=== PATIENT | male | born 1935 | race Caucasian/White ===

== ENCOUNTER 2016-11-01 16:38 | Emergency (ER) | payer MEDICARE, OTHER ==
[2016-11-01] MEDS ORDERED: MAGNESIUM CITRATE SOLN 296 ML BTL ONE (17:09)
[2016-11-01 17:48] LABS: BLOOD UREA NITROGEN 22 mg/dL (9-20); CALCIUM 10.3 mg/dL (8.4-10.2); CHLORIDE 109 mmol/L (98-107); GLUCOSE 86 mg/dL (70-100); SODIUM 141 mmol/L (137-145)
--- NOTE | 2016-11-01 18:09 | ER PHYSICIAN DOCUMENTATION ---
Physician Documentation [facility] Name:Alberto Alexandra Age:81 yrs Sex:Male :1935 Arrival Date:11/01/2016 Time:16:38 Bed4 Private MD:Tiffanie Cordero ED, John Disposition: 11/01/16 18:03 Discharged to Home/Self Care. Impression: Constipation, Urinary Retention. - Condition is Good. - Discharge Instructions: CONSTIPATION (Adult). - Medical Reconciliation form form. - Follow up: Kirit Fournier MD; When: 1 - 2 days; Reason: Continuance of care. Follow up: Pelon Berry MD; When: As needed; Reason: Recheck today's complaints. - Problem is an ongoing problem. - Symptoms are unchanged. HPI: 11/01 17:43 This 81 yrs old Male presents to ER via Private Vehicle with complaints of jm Abdominal Problem - POSS BOWEL OBSTRUCTION. 17:43 The patient presents with constipation, the patient has not had a bowel movement for jm 5days. Onset: The symptoms/episode began/occurred 3 month(s) ago. The symptoms do not radiate. Associated signs and symptoms: Pertinent positives: urinary retention. . Severity of pain: At its worst the pain was very mild in the emergency department the pain has resolved. Pt's been dealing w constipation for months. He's been told he needs a colonoscopy, but has refused to get one for personal reasons. He' starting to change his mind, b/c now he thinks that his stool burden is affecting his ability to urinate. He told the practice office associate at 4:30 about this, so she sent him here for eval. Pt has no abd pain, no nausea, or vomiting. . Historical: - Allergies: No known drug Allergies; - Home Meds: 1. Prednisone Oral 2. donepezil oral 3. qunol 4. Metoprolol Tartrate Oral 5. prevagen 6. Benadryl Oral 7. atorvastatin oral 8. terazosin oral 9. finasteride oral 10. Aspirin Oral - PMHx: BPH; kidney disease; spinal stenosis; Hypertension; SLEEP APNEA; - PSHx: CABG; HERNIA REPAIR; cataracts; stents in legs and one kidney; - Tetanus: < 10 years. - Ebola Screening: : Patient denies exposure to infectious person. Patient denies travel to an Ebola-affected area in the 21 days before illness onset. . - Social history: Smoking status: Patient states former smoker of tobacco. Patient uses alcohol but reports only rare drinking. Patient/guardian denies using marijuana. ROS: 17:45 Abdomen/GI: Positive for constipation, Negative for abdominal pain, abdominal cramps. jm 17:45 : Positive for difficulty urinating. Exam: 17:45 Constitutional: The patient appears alert, awake. jm 17:45 Abdomen/GI: Inspection: distension, is not seen, Bowel sounds: normal, Palpation: abdomen is soft and non-tender. 17:45 : CVA tenderness, is absent, Bladder: is normal, tenderness, is not appreciated. Vital Signs: 17:05 BP 152 / 71; Pulse 81; Resp 16; Temp 98.2; Pulse Ox 94% on R/A; Pain 0/10; st MDM: 17:14 Patient medically screened. 17:45 Differential diagnosis: retention and constipation. Data reviewed: vital signs, nurses notes, old medical records, and as a result, I will discharge patient. Counseling: I had a detailed discussion with the patient and/or guardian regarding: the historical points, exam findings, and any diagnostic results supporting the discharge/admit diagnosis, the need for outpatient follow up, with the patient's primary care provider, a spot sprayer. 11/01 17:53 Order name: BASIC METABOLIC PANEL; Complete Time: 18:03 EDMS Dispensed Medications: 16:57 Drug: Magnesium Citrate Liquid 300 ml; Route: PO; st 18:03 Follow up: Response: No adverse reaction st Signatures: Josefa Hdz, RN RN Mian Lemus MD MD jm
--- NOTE | 2016-11-01 18:09 | ER NURSING DOCUMENTATION ---
Nurse's Notes [facility] Name:Alberto Alexandra Age:81 yrs Sex:Male :1935 Arrival Date:11/01/2016 Time:16:38 Bed4 Private MD:Tiffanie Cordero Diagnosis:Constipation;Urinary Retention Presentation: 11/01 16:48 Acuity: ZAHIDA 3 st 16:57 Presenting complaint: Patient states: pt states he has been constipated since Jun with st a BM every 2-3 days. This last week pt has also had troubles urinating as well. Transition of care: patient was not received from another setting of care. 16:57 Method Of Arrival: Private Vehicle st Triage Assessment: 17:03 General: Appears in no apparent distress, Behavior is cooperative. Pain: Denies pain. st GI: Abd is soft and non tender X 4 quads. Reports constipation, pt denies any discomfort at this time. : Reports having troubles urinating especially more then a dribble. Historical: - Allergies: No known drug Allergies; - Home Meds: 1. Prednisone Oral 2. donepezil oral 3. qunol 4. Metoprolol Tartrate Oral 5. prevagen 6. Benadryl Oral 7. atorvastatin oral 8. terazosin oral 9. finasteride oral 10. Aspirin Oral - PMHx: BPH; kidney disease; spinal stenosis; Hypertension; SLEEP APNEA; - PSHx: CABG; HERNIA REPAIR; cataracts; stents in legs and one kidney; - Tetanus: < 10 years. - Ebola Screening: : Patient denies exposure to infectious person. Patient denies travel to an Ebola-affected area in the 21 days before illness onset. . - Social history: Smoking status: Patient states former smoker of tobacco. Patient uses alcohol but reports only rare drinking. Patient/guardian denies using marijuana. Screenin:05 Infectious Disease Risk None. Abuse screen: Denies threats or abuse. Denies injuries st from another. pt feels safe at home. Nutritional screening: No deficits noted. Vital Signs: 17:05 BP 152 / 71; Pulse 81; Resp 16; Temp 98.2; Pulse Ox 94% on R/A; Pain 0/10; st ED Course: 16:40 Patient arrived in ED. ds 16:40 Tiffanie Cordero MD is Private Physician. ds 16:48 Josefa Hdz RN is Primary Nurse. st 16:[address] 17:06 Valuables Remains with patient Patient has correct armband on for positive st identification. Placed in gown. Bed in low position. 17:10 Mian Piper MD is Attending Physician. 18:03 Kirit Fournier MD is Referral Physician. julius 18:04 Pelon Berry MD is Referral Physician. julius Administered Medications: 16:57 Drug: Magnesium Citrate Liquid 300 ml; Route: PO; st 18:03 Follow up: Response: No adverse reaction st Outcome: 18:03 Discharge ordered by . 18:07 Discharged to home ambulatory. st 18:07 Condition: unchanged 18:07 Discharge instructions given to patient, Instructed on discharge instructions, follow up and referral plans. 18:08 Patient [address] the ED. st 11/02 09:43 Discharge F/U Call: Spoke with: patient. other: Name: pt states he had watery stools st all night but still feels "blocked up this today". pt states he called to make a fallow up appointment but was toddle that Dr Donnelly could not see him and that Dr. Corrales would call him back. I told pt that I would see what I could do to get him a fallow up appointment and spoke with Sue hogshead stripper and she is going to look into it. Signatures: Josefa Hdz RN RN st Srot, Felicity, Reg Reg ds Mian Piper MD MD jm
== END 2016-11-01 18:09 | disposition home or self-care (01) ==
LOC: ER 16:38
DX: K59.00 Constipation, unspecified (principal); R33.9 Retention of urine, unspecified; I10 Essential (primary) hypertension; Z95.1 Presence of aortocoronary bypass graft; Z79.899 Other long term (current) drug therapy; Z79.82 Long term (current) use of aspirin; Z79.52 Long term (current) use of systemic steroids
CPT/HCPCS: 80048; 99283